=== PATIENT | male | born 1975 | race Hispanic/Latino ===

== ENCOUNTER → 2016-11-15 | Outpatient (CLI) | payer SELFPAY | LOC: YCFC.O 17:12 | PROVIDERS: ATTEND Nurse Practitioner Family | DX: E11.65 Type 2 diabetes mellitus with hyperglycemia (principal); E78.2 Mixed hyperlipidemia; E03.9 Hypothyroidism, unspecified; I10 Essential (primary) hypertension ==

== ENCOUNTER → 2016-12-02 | Outpatient (CLI) | payer SELFPAY ==
--- NOTE | 2016-12-02 09:38 | RAD ---
EXAM DESCRIPTION: Left knee series. CLINICAL HISTORY: Left knee pain. COMPARISON: None. TECHNIQUE: Three views of the left knee are submitted for interpretation. FINDINGS: There is considerable osteophyte formation and joint space loss of all 3 compartments compatible with advanced degenerative change. There is no fracture, dislocation, obvious joint effusion or suspicious radiopaque foreign body. Soft tissues are unremarkable. IMPRESSION: Tricompartment degenerative change. No evidence of fracture. Electronically signed by: Norm Guidry MD 12/02/2016 09:37
--- NOTE | 2016-12-02 09:39 | RAD ---
EXAM DESCRIPTION: Pelvis series. CLINICAL HISTORY: Pelvic pain. COMPARISON: None. TECHNIQUE: One view was submitted for evaluation. FINDINGS: No fracture, dislocation, or radiopaque foreign body is seen. Pelvic ring appears intact. Soft tissues are unremarkable. IMPRESSION: No significant abnormality. Electronically signed by: Norm Guidry MD 12/02/2016 09:37
== END ==
LOC: RAD 07:40
PROVIDERS: ATTEND Orthopaedic Surgery
DX: M25.562 Pain in left knee (principal); M25.552 Pain in left hip; M12.862 Other specific arthropathies, not elsewhere classified, left knee

== ENCOUNTER → 2017-01-11 | Outpatient (CLI) | payer SELFPAY | END | disposition home or self-care (01) | LOC: YCFC.O 07:55 | PROVIDERS: ATTEND Nurse Practitioner Family | DX: E11.9 Type 2 diabetes mellitus without complications (principal) ==

== ENCOUNTER → 2017-05-16 | Outpatient (CLI) | payer BC | END | disposition home or self-care (01) | LOC: YCFC.O 16:39 | PROVIDERS: ATTEND Nurse Practitioner Family | DX: E11.9 Type 2 diabetes mellitus without complications (principal) ==

== ENCOUNTER → 2017-05-23 | Outpatient (CLI) | payer BC ==
--- NOTE | 2017-05-26 17:23 | US ---
EXAM DESCRIPTION: Soft Tissue,Head/Neck CLINICAL HISTORY: 42 years Male, Localized swelling, mass and lump, neck COMPARISON: None. FINDINGS: Ultrasound of the right side of the neck was performed. There is a subthreshold lymph node at the area of concern measuring 5 mm short axis diameter. No adenopathy, fluid collection or other mass. IMPRESSION: Negative exam. If symptoms persist or worsen, CT is suggested. Electronically signed by: Nick Nguyen MD 05/26/2017 12:24 PM CDT Workstation: [id number]
--- NOTE | 2017-05-26 17:23 | RAD ---
EXAM DESCRIPTION: Foot,Right 3 Views CLINICAL HISTORY: 42 years Male, PAIN IN RIGHT FOOT COMPARISON: None. FINDINGS: 3 views of the right foot show no acute fracture or malalignment. The joint spaces are well-maintained. There is a small plantar calcaneal spur. Calcification in the distal Achilles tendon is likely related to chronic or remote Achilles tendinitis. There is a faint peripherally calcified structure posterior to the tibiotalar joint which probably represents an accessory ossicle. Is probable soft tissue swelling laterally. IMPRESSION: Lateral soft tissue swelling without underlying fracture or malalignment. Calcaneal spurring and evidence of remote or chronic Achilles tendinitis. Electronically signed by: Nick Nguyen MD 05/26/2017 12:22 PM CDT Workstation: [facility]
== END ==
LOC: RAD 16:24
PROVIDERS: ATTEND Nurse Practitioner Family
DX: R22.1 Localized swelling, mass and lump, neck (principal); M79.671 Pain in right foot; E11.65 Type 2 diabetes mellitus with hyperglycemia

== ENCOUNTER 2017-12-29 17:23 | Emergency (ER) | payer BC ==
[2017-12-29 17:57] VITALS: TEMP 98.2
--- NOTE | 2017-12-29 18:10 | ED.PDOC ---
History of Present Illness - General Chief Complaint: ENT Problem Stated Complaint: lt ear pain, cough, Time Seen by Provider: 12/29/17 18:01 Source: patient Exam Limitations: no limitations - History of Present Illness Timing/Duration: gradual, other - one month EENT Location: eye (L), ear (L), facial Prearrival Treatment: over the counter meds Improving Factors: nothing Worsening Factors: nothing Associated Symptoms: change in hearing, cough, facial pain/swelling, nasal congestion/drainage, sinus infection Allergies/Adverse Reactions: Allergies NO KNOWN ALLERGY Allergy (Verified 12/29/17 17:59) Home Medications: Ambulatory Orders Fluticasone Propionate (Nasal) [Flonase] 50 mcg NA BID #1 spr 12/29/17 Levemir Pen 12/29/17 Lisinopril 12/29/17 Meloxicam 12/29/17 Metformin HCl 12/29/17 Tramadol HCl 50 mg PO Q4HR PRN #20 tab 12/29/17 glipiZIDE 12/29/17 Review of Systems - Review of Systems Constitutional: Denies: chills, fever, weakness EENTM: States: blurred vision, tearing, ear pain, nose congestion. Denies: throat pain Respiratory: States: cough. Denies: short of breath Cardiology: Denies: chest pain, edema Gastrointestinal/Abdominal: States: nausea. Denies: abdominal pain Genitourinary: States: frequency. Denies: dysuria, hematuria Musculoskeletal: Denies: joint pain, muscle pain Skin: Denies: rash Neurological: States: headache. Denies: weakness Endocrine: States: increased thirst, increased urine Hematologic/Lymphatic: Denies: swollen glands Past Medical History (General) - Patient Medical History Hx Seizures: No Hx Asthma: No Hx of COPD: No Hx Cardiac Disorders: No Hx Hypertension: Yes Hx Thyroid Disease: Yes Hx Diabetes: Yes Hx Gastroesophageal Reflux: Yes Hx Cancer: No - Vaccination History Hx Tetanus, Diphtheria Vaccination: No Hx Influenza Vaccination: Yes Hx Pneumococcal Vaccination: No Immunizations Up to Date: Yes - Social History Hx Alcohol Use: Yes Family Medical History - Family History Father Hx Family Diabetes: Yes Hx Family;Other: liver problems Physical Exam - Physical Exam General Appearance: Alert, Obvious distress Eye Exam: right normal, left other - trace infraorbital edema Ear Exam: right ear: canal normal, TM normal, left ear: TM red, erythema Nasal Exam: discharge Throat Exam: pharynx normal Neck: non-tender, full range of motion, normal inspection Cardiovascular/Respiratory: regular rate, rhythm, normal breath sounds, no respiratory distress Neurologic: alert, normal mood/affect, oriented x 3 Skin Exam: normal color, warm/dry Departure - Departure Clinical Impression: Ear ache URI (upper respiratory infection) Qualifiers: URI type: unspecified viral URI Qualified Code(s): J06.9 - Acute upper respiratory infection, unspecified; B97.89 - Other viral agents as the cause of diseases classified elsewhere Disposition: Discharge to Home or Self Care Departure Forms: ED Discharge - Pt. Copy, Patient Portal Self Enrollment Instructions: DI for Ear Pain-Adult Referrals: Alison New NP [Primary Care Provider] - 1-2 Weeks Prescriptions: Tramadol HCl 50 mg PO Q4HR PRN #20 tab PRN Reason: Moderate Pain Fluticasone Propionate (Nasal) [Flonase] 50 mcg NA BID #1 spr Home Medications: Ambulatory Orders Fluticasone Propionate (Nasal) [Flonase] 50 mcg NA BID #1 spr 12/29/17 Levemir Pen 12/29/17 Lisinopril 12/29/17 Meloxicam 12/29/17 Metformin HCl 12/29/17 Tramadol HCl 50 mg PO Q4HR PRN #20 tab 12/29/17 glipiZIDE 12/29/17
--- NOTE | 2017-12-29 18:36 | RAD ---
PROCEDURE: XR PARANASAL SINUSES 3 OR MORE VIEWS CLINICAL HISTORY: 42 years Male L facial edema COMPARISON: None. TECHNIQUE: FINDINGS: No fluid is visualized in the paranasal sinuses. No definite acute fracture. IMPRESSION: No acute fracture is identified. CT could be obtained to better evaluate. Electronically signed by: Cody Jean MD 12/29/2017 6:35 PM [employer]
[2017-12-29 18:50] VITALS: BP 156/105; O2SAT 96
== END 2017-12-29 19:20 | disposition home or self-care (01) ==
LOC: ER 17:23
DX: H92.02 Otalgia, left ear (principal); J06.9 Acute upper respiratory infection, unspecified; B97.89 Other viral agents as the cause of diseases classified elsewhere; I10 Essential (primary) hypertension; E11.9 Type 2 diabetes mellitus without complications; E07.9 Disorder of thyroid, unspecified

== ENCOUNTER 2018-02-03 17:05 | Emergency (ER) | payer BC ==
[2018-02-03] MEDS ORDERED: TETRACAINE HCL 0.5% OPHTH SOL 1 DROP OPHTH ONE (17:06)
[2018-02-03] MEDS ORDERED: GENTAMICIN 0.3% OPHTH SOL 1 DROP OPHTH ONE (17:06)
[2018-02-03] MEDS ORDERED: OPHTHALMIC SALT SOLUTION 120 ML BTTL ONE (17:17)
[2018-02-03 17:23] VITALS: BP 126/91; TEMP 97.4; O2SAT 96
--- NOTE | 2018-02-03 17:39 | ED.PDOC ---
History of Present Illness - General Chief Complaint: Eye Problems Stated Complaint: right eye pain Time Seen by Provider: 02/03/18 17:12 Source: patient Exam Limitations: no limitations - History of Present Illness Initial Comments: The patient is a 42-year-old male presenting to the emergency room secondary to a corneal abrasion right over the pupil of his right eye. The abrasion is C-shaped one that had at one point formed a flap that has smoothed out. The patient did this by leaning over into a dark to get something, when an object in the closet poked him in the eye. He has had corneal abrasions before. He does not wear contacts. He does have some blurry vision on that side as one would expect. Extraocular movements are intact. Timing/Duration: 24 hours Severity: moderate Improving Factors: nothing Worsening Factors: nothing Associated Symptoms: denies symptoms Allergies/Adverse Reactions: Allergies NO KNOWN ALLERGY Allergy (Verified 12/29/17 17:59) Home Medications: Ambulatory Orders Eqlkisdzumwqz-Nihw-Tdbezkpfau [Fioricet] 1 ea PO Q8H PRN #21 tab 02/03/18 Erythromycin Ophth Oint 0.5 inch OPHTH Q4H #2 tube 02/03/18 Glipizide [Glipizide] 10 mg PO BID 02/03/18 Insulin Detemir [Levemir] 5 - 10 units SUBCU BID 02/03/18 Lisinopril [Lisinopril] 20 mg PO BID 02/03/18 Meloxicam [Meloxicam] 15 mg PO DAILY 02/03/18 Metformin HCl [Metformin HCl] 1,000 mg PO BID 02/03/18 Review of Systems - Review of Systems Constitutional: States: no symptoms reported EENTM: States: eye pain, blurred vision, tearing Respiratory: States: no symptoms reported Cardiology: States: no symptoms reported Gastrointestinal/Abdominal: States: no symptoms reported Genitourinary: States: no symptoms reported Musculoskeletal: States: no symptoms reported Skin: States: no symptoms reported Neurological: States: no symptoms reported All other Systems: No Change from Baseline Past Medical History (General) - Patient Medical History Hx Seizures: No Hx Stroke: No Hx Asthma: No Hx of COPD: No Hx Cardiac Disorders: No Hx Congestive Heart Failure: No Hx Hypertension: Yes Hx Thyroid Disease: Yes Hx Diabetes: Yes Hx Gastroesophageal Reflux: Yes Hx Cancer: No - Vaccination History Hx Tetanus, Diphtheria Vaccination: - unknown Hx Influenza Vaccination: Yes Hx Pneumococcal Vaccination: No - Social History Hx Tobacco Use: Yes Hx Alcohol Use: Yes Family Medical History - Family History Father Hx Family Diabetes: Yes Hx Family;Other: liver problems Physical Exam - Physical Exam General Appearance: Alert, Anxious, No apparent distress Eye Exam: right other - the right eye shows conjunctival injection. Fluorescein exam shows the corneal abrasion. The flap appears to have flattened out. 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 There is a significant sized abrasion. The patient will be written for erythromycin ointment to be used for the next 10 days to 2 weeks. 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 He also needs to wear goggles to keep wind and the dust away from the eye and he may need to patch the eye during the day to prevent headaches. He needs to follow up with his primary care doctor early next week for reevaluation. he can continue the meloxicam for pain relief. He will be written for Fioricet for as needed use. There is the possibility that he may yet need an ophthalmological evaluation if it is not healing well. ER warnings were given for any worsening. Departure - Departure Clinical Impression: Corneal abrasion, right Qualifiers: Encounter type: initial encounter Qualified Code(s): S05.01XA - Injury of conjunctiva and corneal abrasion without foreign body, right eye, initial encounter Disposition: Discharge to Home or Self Care Condition: Fair Departure Forms: ED Discharge - Pt. Copy, Patient Portal Self Enrollment Instructions: DI for Corneal Abrasion Diet: regular diet Activity: increase activity as tolerated Referrals: Alison New, SHIRT LINE OPERATOR [Primary Care Provider] - 1-5 Days Prescriptions: Yiushmsasrcbt-Vill-Nwqfzuanhk [Fioricet] 1 ea PO Q8H PRN #21 tab PRN Reason: Pain Erythromycin Ophth Oint 0.5 inch OPHTH Q4H #2 tube Home Medications: Ambulatory Orders Mpuhihgxzaaes-Xzlo-Jnyaquuvqk [Fioricet] 1 ea PO Q8H PRN #21 tab 02/03/18 Erythromycin Ophth Oint 0.5 inch OPHTH Q4H #2 tube 02/03/18 Glipizide [Glipizide] 10 mg PO BID 02/03/18 Insulin Detemir [Levemir] 5 - 10 units SUBCU BID 02/03/18 Lisinopril [Lisinopril] 20 mg PO BID 02/03/18 Meloxicam [Meloxicam] 15 mg PO DAILY 02/03/18 Metformin HCl [Metformin HCl] 1,000 mg PO BID 02/03/18 Additional Instructions: the patient's a 42-year-old male presenting with a corneal abrasion over the pupil of his right eye. There is a significant sized abrasion. The patient will be written for erythromycin ointment to be used for the next 10 days to 2 weeks. 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 He also needs to wear goggles to keep wind and the dust away from the eye and he may need to patch the eye during the day to prevent headaches. He needs to follow up with his primary care doctor early next week for reevaluation. he can continue the meloxicam for pain relief. He will be written for Fioricet for as needed use. There is the possibility that he may yet need an ophthalmological evaluation if it is not healing well. ER warnings were given for any worsening.
== END 2018-02-03 18:01 | disposition home or self-care (01) ==
LOC: ER 17:05
DX: S05.01XA Injury of conjunctiva and corneal abrasion without foreign body, right eye, initial encounter (principal); I10 Essential (primary) hypertension; E11.9 Type 2 diabetes mellitus without complications; E07.9 Disorder of thyroid, unspecified; K21.9 Gastro-esophageal reflux disease without esophagitis; Z79.4 Long term (current) use of insulin; Z87.891 Personal history of nicotine dependence; W22.8XXA Striking against or struck by other objects, initial encounter; Y92.9 Unspecified place or not applicable

== ENCOUNTER 2018-08-09 10:29 | Emergency (ER) | payer BC ==
[2018-08-09 11:00] VITALS: O2SAT 95
[2018-08-09] MEDS ORDERED: cefTRIAXone SODIUM 1 GM VIAL IM ONE (11:40)
[2018-08-09] MEDS ORDERED: LIDOCAINE 1% 2 ML VIAL INJ ONE (11:48)
--- NOTE | 2018-08-09 12:04 | ED.PDOC ---
History of Present Illness - General Chief Complaint: General Stated Complaint: Fever, sore throat, generalized aching Time Seen by Provider: 08/09/18 11:59 Source: patient Exam Limitations: no limitations - History of Present Illness Initial Comments: C/O FEVER AND ST. Severity: moderate Improving Factors: nothing Worsening Factors: nothing Associated Symptoms: denies symptoms Allergies/Adverse Reactions: Allergies NO KNOWN ALLERGY Allergy (Verified 12/29/17 17:59) Home Medications: Ambulatory Orders Bbzukogdvzool-Zzbn-Ayacumxrqv [Fioricet] 1 ea PO Q8H PRN #21 tab 02/03/18 Erythromycin Ophth Oint 0.5 inch OPHTH Q4H #2 tube 02/03/18 Glipizide [Glipizide] 10 mg PO BID 02/03/18 Insulin Detemir [Levemir] 5 - 10 units SUBCU BID 02/03/18 Lisinopril [Lisinopril] 20 mg PO BID 02/03/18 Meloxicam [Meloxicam] 15 mg PO DAILY 02/03/18 Metformin HCl [Metformin HCl] 1,000 mg PO BID 02/03/18 Cefuroxime Axetil [Ceftin] 500 mg PO Q12H #20 tablet 08/09/18 Review of Systems - Review of Systems Constitutional: States: fever - TMAX 101 EENTM: States: no symptoms reported Respiratory: Denies: cough, short of breath, wheezing Cardiology: Denies: chest pain, palpitations Gastrointestinal/Abdominal: Denies: nausea, vomiting Genitourinary: States: no symptoms reported Musculoskeletal: States: other - PT C/O 3 WEEK HX OF PAIN R SECOND TOE. STARTED DRAINING 2 DAYS AGO. Skin: States: no symptoms reported Neurological: States: no symptoms reported Endocrine: States: no symptoms reported Hematologic/Lymphatic: States: no symptoms reported Past Medical History (General) - Patient Medical History Hx Seizures: No Hx Stroke: No Hx Asthma: No Hx of COPD: No Hx Cardiac Disorders: No Hx Congestive Heart Failure: No Hx Hypertension: Yes Hx Thyroid Disease: Yes Hx Diabetes: Yes Hx Gastroesophageal Reflux: Yes Hx Cancer: No - Vaccination History Hx Tetanus, Diphtheria Vaccination: - unknown Hx Influenza Vaccination: Yes - 2018 Hx Pneumococcal Vaccination: No - Social History Hx Tobacco Use: Yes Hx Alcohol Use: Yes Family Medical History - Family History Father Living Status: Still Living Hx Family Diabetes: Yes Hx Family;Other: liver problems Physical Exam - Physical Exam General Appearance: Obese Eye Exam: bilateral normal Ears, Nose, Throat: pharyngeal erythema, other - NO EXUDATE, TM'S NL Neck: supple, other - TENDER ANT ADENOPATHY Respiratory: lungs clear, normal breath sounds Cardiovascular/Chest: regular rate, rhythm, no murmur Gastrointestinal/Abdominal: non tender, soft, no organomegaly Back Exam: normal inspection, no CVA tenderness Extremity: normal range of motion, other - R SECOND TOE WITH SWELLING DISTAL ASPECT, SMALL AMOUNT CLEAR DRAINAGE AT THE NAIL BED, NO LYMPHANGITIS, NVI, Neurologic: alert, normal mood/affect Skin Exam: normal color Departure - Departure Clinical Impression: Strep pharyngitis Cellulitis Qualifiers: Site of cellulitis: other site Qualified Code(s): L03.818 - Cellulitis of other sites ICD-10 Supporting Text: CELLULITIS TOE Time of Disposition: 12:13 Disposition: Discharge to Home or Self Care Condition: Good Departure Forms: ED Discharge - Pt. Copy, ED Discharge - Work Release, Patient Portal Self Enrollment Instructions: Sore Throat, Adult (DC), Cellulitis and Erysipelas (Skin Infections) Referrals: Alison New, CREATIVE SERVICES MANAGER [Primary Care Provider] - 1-2 Weeks Prescriptions: Cefuroxime Axetil [Ceftin] 500 mg PO Q12H #20 tablet Home Medications: Ambulatory Orders Upuadarzfgzsd-Utly-Lppxaflfdx [Fioricet] 1 ea PO Q8H PRN #21 tab 02/03/18 Erythromycin Ophth Oint 0.5 inch OPHTH Q4H #2 tube 02/03/18 Glipizide [Glipizide] 10 mg PO BID 02/03/18 Insulin Detemir [Levemir] 5 - 10 units SUBCU BID 02/03/18 Lisinopril [Lisinopril] 20 mg PO BID 02/03/18 Meloxicam [Meloxicam] 15 mg PO DAILY 02/03/18 Metformin HCl [Metformin HCl] 1,000 mg PO BID 02/03/18 Cefuroxime Axetil [Ceftin] 500 mg PO Q12H #20 tablet 08/09/18
[2018-08-09 12:40] VITALS: BP 133/91; TEMP 100.9
== END 2018-08-09 12:30 | disposition home or self-care (01) ==
LOC: ER 10:29
DX: J02.0 Streptococcal pharyngitis (principal); L03.031 Cellulitis of right toe; E11.9 Type 2 diabetes mellitus without complications; I10 Essential (primary) hypertension; K21.9 Gastro-esophageal reflux disease without esophagitis; E07.9 Disorder of thyroid, unspecified; Z79.4 Long term (current) use of insulin; Z79.899 Other long term (current) drug therapy; Z87.891 Personal history of nicotine dependence
CPT/HCPCS: 36416; 82948; 87880; J0696

== ENCOUNTER 2018-11-30 10:28 | Emergency (ER) | payer BC, OTHER ==
[2018-11-30] MEDS ORDERED: POVIDONE IODINE 10 % 15 ML UD TOP ONE (10:35)
--- NOTE | 2018-11-30 11:33 | ED.PDOC ---
History of Present Illness - General Chief Complaint: Trauma Stated Complaint: left index fingr injury at work Time Seen by Provider: 11/30/18 11:30 Source: patient Exam Limitations: no limitations - History of Present Illness Initial Comments: Patient presents after a 2 pound hammer got deflected from a piece of machinery and landed on his right index finger, crushing it against a metal bar. He has sustained a laceration to the distal anterior 2nd digit. There is pain along the entire finger that is throbbing and limited movement. No other injuries nor complaints. Timing/Duration: 1-3 hours Severity: moderate Improving Factors: rest Worsening Factors: movement Associated Symptoms: denies symptoms Allergies/Adverse Reactions: Allergies NO KNOWN ALLERGY Allergy (Verified 11/30/18 10:41) Home Medications: Ambulatory Orders Vfsnrlirgixpx-Bqxx-Fyiazawsvj [Fioricet] 1 ea PO Q8H PRN #21 tab 02/03/18 Erythromycin Ophth Oint 0.5 inch OPHTH Q4H #2 tube 02/03/18 Glipizide 10 mg PO BID 02/03/18 Insulin Detemir [Levemir] 5 - 10 units SUBCU BID 02/03/18 Lisinopril 20 mg PO BID 02/03/18 Meloxicam 15 mg PO DAILY 02/03/18 Metformin HCl 1,000 mg PO BID 02/03/18 Cefuroxime Axetil [Ceftin] 500 mg PO Q12H #20 tablet 08/09/18 Review of Systems - Review of Systems Constitutional: States: no symptoms reported EENTM: States: no symptoms reported Respiratory: States: no symptoms reported Cardiology: States: no symptoms reported Gastrointestinal/Abdominal: States: no symptoms reported Genitourinary: States: no symptoms reported Musculoskeletal: States: see HPI Skin: States: see HPI Neurological: States: no symptoms reported Endocrine: States: no symptoms reported Hematologic/Lymphatic: States: no symptoms reported Past Medical History (General) - Patient Medical History Hx Seizures: No Hx Stroke: No Hx Asthma: No Hx of COPD: No Hx Cardiac Disorders: No Hx Congestive Heart Failure: No Hx Hypertension: Yes Hx Thyroid Disease: Yes Hx Diabetes: Yes Hx Gastroesophageal Reflux: Yes Hx Cancer: No - Vaccination History Hx Tetanus, Diphtheria Vaccination: No - unknown Hx Influenza Vaccination: Yes - 2018 Hx Pneumococcal Vaccination: No - Social History Hx Tobacco Use: Yes Hx Alcohol Use: Yes Hx Substance Use: No Hx Substance Use Treatment: No Hx Depression: No - Female History Patient is a Female of Child Bearing Age (10 -59 yrs old): No Family Medical History - Family History Father Living Status: Still Living Hx Family Diabetes: Yes Hx Family;Other: liver problems Physical Exam - Physical Exam General Appearance: Alert Respiratory: lungs clear, normal breath sounds Cardiovascular/Chest: normal peripheral pulses, regular rate, rhythm Peripheral Pulses: radial,right: 2+, radial,left: 2+ Back Exam: other - 1.5 cm transverse laceration on the anterior surface of the distal right 2nd digit. Hemostatic. Patient can flex the finger about 30 degrees before the pain makes him stop. There is 5/5 strength to flexion/extension/adduction/abduction of the right 2nd digit and capillary refill is less than two seconds at the nailbed and distal phalange of the right second digit. Neurologic: no motor/sensory deficits, alert, normal mood/affect, oriented x 3 Progress - Progress Progress: 11/30/18 12:14 Area was prepped and draped in a sterile fashion. 2 cc of lidocaine without epinephrine was used to gain excellent local anesthesia. Three interrupted sutures using 4-0 Proline were used to gain excellent wound edge approximation. Area was clean, dry, and hemostatic upon completion. Patient tolerated the procedure well. Tetanus booster given. Departure - Departure Clinical Impression: Laceration Disposition: Discharge to Home or Self Care Condition: Good Departure Forms: ED Discharge - Pt. Copy, Patient Portal Self Enrollment Instructions: DI for Trauma Diet: resume usual diet Activity: other - Be careful using the right index finger so as not to pop out the sutures. Referrals: Alison New NP [Primary Care Provider] - 1-2 Weeks Home Medications: Ambulatory Orders Dkpgyzqoatbqt-Jibp-Mkillexzxp [Fioricet] 1 ea PO Q8H PRN #21 tab 02/03/18 Erythromycin Ophth Oint 0.5 inch OPHTH Q4H #2 tube 02/03/18 Glipizide 10 mg PO BID 02/03/18 Insulin Detemir [Levemir] 5 - 10 units SUBCU BID 02/03/18 Lisinopril 20 mg PO BID 02/03/18 Meloxicam 15 mg PO DAILY 02/03/18 Metformin HCl 1,000 mg PO BID 02/03/18 Cefuroxime Axetil [Ceftin] 500 mg PO Q12H #20 tablet 08/09/18 Additional Instructions: Return to the E.R. or your regular doctor in 7 days for suture removal. Return to the E.R. sooner for increasing swelling, pain, or pus. You can try using ice, ibuprofen, or tylenol for the pain.
[2018-11-30 11:48] VITALS: O2SAT 94
--- NOTE | 2018-11-30 11:51 | RAD ---
EXAM DESCRIPTION: Fingers,Left CLINICAL HISTORY: 43 years Male, crush injury to right 2nd digit distally COMPARISON: None. FINDINGS: Three views of the right second (index) finger show no acute fracture or malalignment. Distal soft tissue swelling is noted without radiopaque foreign body or soft tissue gas. IMPRESSION: Soft tissue swelling, otherwise unremarkable exam. Electronically signed by: Nick Nguyen MD 11/30/2018 11:50 AM [facility]
[2018-11-30] MEDS ORDERED: LIDOCAINE 1% 10 ML VIAL INJ ONE (11:56)
[2018-11-30] MEDS ORDERED: TETANUS,DIPHTHERIA,PERTUSSIS 1 EA SYG IM ONE (12:16)
[2018-11-30 12:47] VITALS: BP 129/86; TEMP 97.2
== END 2018-11-30 12:35 | disposition home or self-care (01) ==
LOC: ER 10:28
DX: S61.210A Laceration without foreign body of right index finger without damage to nail, initial encounter (principal); S67.190A Crushing injury of right index finger, initial encounter; K21.9 Gastro-esophageal reflux disease without esophagitis; I10 Essential (primary) hypertension; E07.9 Disorder of thyroid, unspecified; E11.9 Type 2 diabetes mellitus without complications; W23.1XXA Caught, crushed, jammed, or pinched between stationary objects, initial encounter; Y99.0 Civilian activity done for income or pay; Y92.69 Other specified industrial and construction area as the place of occurrence of the external cause; Z87.891 Personal history of nicotine dependence; Z79.899 Other long term (current) drug therapy; Z79.4 Long term (current) use of insulin

== ENCOUNTER → 2019-01-22 | Outpatient (CLI) | payer OTHER | LOC: YCFC.O 07:56 | PROVIDERS: ATTEND Nurse Practitioner Family | DX: Z00.00 Encounter for general adult medical examination without abnormal findings (principal) ==

== ENCOUNTER 2019-08-03 14:52 | Emergency (ER) | payer OTHER ==
--- NOTE | 2019-08-03 16:09 | ED.PDOC ---
History of Present Illness - General Chief Complaint: Upper Extremity Injury Time Seen by Provider: 08/03/19 16:01 - History of Present Illness Initial Comments: 44 yo M PMH HTN DM presents to ED at bedside one hour after accidental cut of L hand ring finger admits in machine. Pt. is right handed so this is non dominant hand. Denies head injury LOC tetanus beginning of this year denies fever chills nausea vomiting diarrhea chest pain sob diaphoresis. No change in diet rest bowel or bladder, admits smoking and occasional drinking no other c/o today. Allergies/Adverse Reactions: Allergies NO KNOWN ALLERGY Allergy (Verified 11/30/18 10:41) Home Medications: Ambulatory Orders Glipizide 10 mg PO BID 02/03/18 Metformin HCl 1,000 mg PO BID 02/03/18 Acetaminophen [Tylenol] 650 mg PO Q6H PRN #30 tab 08/03/19 Amoxicillin & Pot Clavulanate [Augmentin Tab] 875 mg PO BID 10 Days #20 tab 08/03/19 Cholesterol 1 mis XX DAILY 08/03/19 Dapagliflozin Propanediol [Farxiga] 5 mg PO DAILY 08/03/19 Doxycycline (Monohydrate) [Doxycycline Monohydrate] 100 mg PO BID 10 Days #20 tab 08/03/19 Ibuprofen 600 mg PO Q6H PRN #20 tab 08/03/19 Insulin Glargine 100U/ml [Lantus] 20 unit SUBCU BID 08/03/19 Lisinopril & Hydrochlorothiazi [Lisinopril/Hctz 20-25 mg] 1 tab PO BID 08/03/19 Review of Systems - Review of Systems Constitutional: States: no symptoms reported EENTM: States: no symptoms reported Respiratory: States: no symptoms reported Cardiology: States: no symptoms reported Gastrointestinal/Abdominal: States: no symptoms reported Genitourinary: States: no symptoms reported Musculoskeletal: States: no symptoms reported Skin: States: see HPI Neurological: States: no symptoms reported Endocrine: States: no symptoms reported Hematologic/Lymphatic: States: no symptoms reported All other Systems: Reviewed and Negative Past Medical History (General) - Patient Medical History Hx Seizures: No Hx Stroke: No Hx Asthma: No Hx of COPD: No Hx Cardiac Disorders: No Hx Congestive Heart Failure: No Hx Hypertension: Yes Hx Thyroid Disease: Yes Hx Diabetes: Yes Hx Gastroesophageal Reflux: Yes Hx Cancer: No - Vaccination History Hx Tetanus, Diphtheria Vaccination: No - unknown Hx Influenza Vaccination: Yes - 2018 Hx Pneumococcal Vaccination: No - Social History Hx Tobacco Use: Yes Hx Alcohol Use: Yes Hx Substance Use: No Hx Substance Use Treatment: No Hx Depression: No Family Medical History - Family History Father Living Status: Still Living Hx Family Diabetes: Yes Hx Family;Other: liver problems Physical Exam - Physical Exam General Appearance: No apparent distress Eyes, Ears, Nose, Throat Exam: normal ENT inspection Neck: non-tender, full range of motion Cardiovascular/Respiratory: regular rate, rhythm Abdominal Exam: non-tender Back Exam: normal inspection Shoulder Exam: normal inspection Elbow/Forearm Exam: normal inspection Wrist Exam: normal inspection Hand Exam: laceration - approx 1 cm linar laceration to palmar surface ring finger Neuro/Tendon: normal sensation, normal motor functions, normal tendon functions Mental Status: oriented x 3 Skin Exam: other - laceration as described Progress - Progress Progress: 08/03/19 16:11 A/P-Finger Laceration 1.tylenol tetanus xr l hand repair laceration after lidocaine d/c follow up pcp wound check 48 hours and suture removal 7-10 days tylenol ibuprofen augmentin doxycycline 08/03/19 18:25 Laboratory Tests 08/03/19 15:45 Urine Color Yellow Urine Appearance Clear Urine pH 5.0 Ur Specific [place] 1.015 Urine Protein Negative Urine Glucose (UA) 500 H Urine Ketones Negative Urine Blood Negative Urine Nitrite Negative Urine Bilirubin Negative Urine Urobilinogen 0.2 Ur Leukocyte Esterase Negative Urine RBC 0 Urine WBC 0 Ur Epithelial Cells 0 Urine Bacteria 0 08/03/19 18:39 EXAM DESCRIPTION: Hand,Left 3 Views CLINICAL HISTORY: CAUGHT IN MACHINERY COMPARISON: None Available. TECHNIQUE: AP, LATERAL, AND OBLIQUE FINDINGS: The visualized bones appear well mineralized. No acute fracture or dislocation. The soft tissues appear grossly unremarkable. IMPRESSION: No acute traumatic abnormality of the left hand. Electronically signed by: Cindy Harris MD 08/03/2019 4:14 PM CDT Procedures - Laceration/Wound Repair Finger Wound's Depth, Shape: superficial, linear Wound Explored: no foreign body removed Betadine Prep?: No - Hibiclens Anesthesia: 1% Lidocaine Volume Anesthetic (cc's): 10 Wound Debrided: minimal Wound Repaired With: sutures Suture Size/Type: 4:0, prolene Number of Sutures: 11 Layer Closure?: No Departure - Departure Clinical Impression: Finger laceration Qualifiers: Encounter type: initial encounter Finger: ring finger Damage to nail status: without damage Foreign body presence: without foreign body Laterality: left Qualified Code(s): S61.215A - Laceration without foreign body of left ring finger without damage to nail, initial encounter Time of Disposition: 22:37 Disposition: Discharge to Home or Self Care Condition: Good Departure Forms: ED Discharge - Pt. Copy, Patient Portal Self Enrollment Instructions: DI for Hand Injury Referrals: Alison New NP [Primary Care Provider] - 1-2 Weeks Prescriptions: Acetaminophen [Tylenol] 650 mg PO Q6H PRN #30 tab PRN Reason: Pain Amoxicillin & Pot Clavulanate [Augmentin Tab] 875 mg PO BID 10 Days #20 tab Doxycycline (Monohydrate) [Doxycycline Monohydrate] 100 mg PO BID 10 Days #20 tab Ibuprofen 600 mg PO Q6H PRN #20 tab PRN Reason: Pain Home Medications: Ambulatory Orders Glipizide 10 mg PO BID 02/03/18 Metformin HCl 1,000 mg PO BID 02/03/18 Acetaminophen [Tylenol] 650 mg PO Q6H PRN #30 tab 08/03/19 Amoxicillin & Pot Clavulanate [Augmentin Tab] 875 mg PO BID 10 Days #20 tab 08/03/19 Cholesterol 1 mis XX DAILY 08/03/19 Dapagliflozin Propanediol [Farxiga] 5 mg PO DAILY 08/03/19 Doxycycline (Monohydrate) [Doxycycline Monohydrate] 100 mg PO BID 10 Days #20 tab 08/03/19 Ibuprofen 600 mg PO Q6H PRN #20 tab 08/03/19 Insulin Glargine 100U/ml [Lantus] 20 unit SUBCU BID 08/03/19 Lisinopril & Hydrochlorothiazi [Lisinopril/Hctz 20-25 mg] 1 tab PO BID 08/03/19
--- NOTE | 2019-08-03 16:15 | RAD ---
EXAM DESCRIPTION: Hand,Left 3 Views CLINICAL HISTORY: CAUGHT IN MACHINERY COMPARISON: None Available. TECHNIQUE: AP, LATERAL, AND OBLIQUE FINDINGS: The visualized bones appear well mineralized. No acute fracture or dislocation. The soft tissues appear grossly unremarkable. IMPRESSION: No acute traumatic abnormality of the left hand. Electronically signed by: Cindy Harris MD 08/03/2019 4:14 PM CDT
[2019-08-03 16:20] VITALS: TEMP 98
[2019-08-03] MEDS: ACETAMINOPHEN 500 MG TAB PO ONE (16:42)
[2019-08-03 17:21] VITALS: O2SAT 96
[2019-08-03] MEDS: ONDANSETRON INJ 4 MG/2 ML VIAL IV ONE (17:34)
[2019-08-03] MEDS: TETANUS,DIPHTHERIA,PERTUSSIS 1 EA SYG IM ONE (17:34)
[2019-08-03] MEDS: MORPHINE SULFATE INJ 10 MG/ML VIAL IV ONE (17:35)
[2019-08-03] MEDS ORDERED: LIDOCAINE 1% 10 ML VIAL INJ ONE (21:39)
[2019-08-03] MEDS ORDERED: CHLORHEXIDINE GLUCONATE 4 % 15 ML UD TOP ONE ×2 (21:39→21:47)
[2019-08-03] MEDS ORDERED: BACITRACIN 0.9 GM UD PCKT ONE (21:40)
[2019-08-03] MEDS: LIDOCAINE 1% 10 ML VIAL INJ ONE (21:52)
[2019-08-03] MEDS: BACITRACIN 0.9 GM UD PCKT TOP ONE (21:52)
[2019-08-03 22:32] VITALS: BP 109/78
== END 2019-08-03 22:58 | disposition home or self-care (01) ==
LOC: ER 14:52
DX: S61.215A Laceration without foreign body of left ring finger without damage to nail, initial encounter (principal); F17.200 Nicotine dependence, unspecified, uncomplicated; I10 Essential (primary) hypertension; E07.9 Disorder of thyroid, unspecified; E11.9 Type 2 diabetes mellitus without complications; K21.9 Gastro-esophageal reflux disease without esophagitis; Z79.4 Long term (current) use of insulin; Z79.899 Other long term (current) drug therapy; W31.9XXA Contact with unspecified machinery, initial encounter; Y92.9 Unspecified place or not applicable
CPT/HCPCS: 73130; 81001; J2270; J2405; J3490

== ENCOUNTER → 2019-12-28 | Outpatient (CLI) | payer OTHER ==
--- NOTE | 2019-12-29 10:05 | MRI ---
EXAM DESCRIPTION: MRI left hand CLINICAL HISTORY: Acquired trigger finger. Fourth digit crush injury COMPARISON: None. TECHNIQUE: Multiplanar, multisequence MR images of the left hand FINDINGS: Sagittal image 9 demonstrates mild intermediate T1/T2 signal along the flexor tendon anterior to the PIP/middle phalanx. Flexor tendon is intact. No diagnostic intrinsic signal within the flexor tendon otherwise. The other flexor tendons included in the [id number] are normal Normal extensor tendons. Normal marrow signal. No arthrosis/osteochondral lesion Intrinsic muscles of the hand included in the [id number] are normal. No abnormality of the partially visualized wrist IMPRESSION: Nonspecific mild intermediate signal along the flexor tendon sheath of fourth finger. This may be a manifestation of scarring/fibrosis along the tendon sheath and may account for trigger finger symptoms No diagnostic intrinsic tendon abnormality Electronically signed by: Vincent Gross MD 12/29/2019 10:04 AM [facility]
== END ==
LOC: MRI 11:00
PROVIDERS: ATTEND Orthopaedic Surgery
DX: M65.342 Trigger finger, left ring finger (principal)

== ENCOUNTER → 2020-01-28 | Outpatient (CLI) | payer BC | LOC: LAB.O 10:37 | PROVIDERS: ATTEND Nurse Practitioner | DX: E11.65 Type 2 diabetes mellitus with hyperglycemia (principal) ==

== ENCOUNTER → 2020-02-08 | Outpatient (CLI) | payer BC, OTHER | LOC: YCFC.O 15:00 | PROVIDERS: ATTEND Family Medicine | DX: L03.90 Cellulitis, unspecified (principal) ==

== ENCOUNTER → 2020-06-26 | Outpatient (CLI) | payer BC | LOC: YCFC.O 15:50 | PROVIDERS: ATTEND Family Medicine | DX: E11.9 Type 2 diabetes mellitus without complications (principal) ==

== ENCOUNTER → 2020-09-01 | Outpatient (CLI) | payer BC | LOC: YCFC.O 16:13 | PROVIDERS: ATTEND Nurse Practitioner Family | DX: L02.91 Cutaneous abscess, unspecified (principal) ==

== ENCOUNTER → 2020-09-18 | Outpatient (CLI) | payer BC ==
--- NOTE | 2020-09-18 15:31 | RAD ---
EXAM DESCRIPTION: Pelvis CLINICAL HISTORY: BILATERAL pain in left hip COMPARISON: 02 December 2016 TECHNIQUE: AP pelvis FINDINGS: Mild degenerative changes are observed in the lower lumbar spine. Pelvis is intact. Phleboliths are observed in the left side of the pelvis. The proximal femurs are intact. IMPRESSION: Unremarkable pelvis. Electronically signed by: Bogdan Balderrama MD 09/18/2020 3:30 PM [facility]
--- NOTE | 2020-09-18 15:34 | RAD ---
EXAM DESCRIPTION: Knee,Left Complete CLINICAL HISTORY: pain in right and left knee COMPARISON: 02 December 2016 TECHNIQUE: 4 views left FINDINGS: Chondrocalcinosis is observed in the lateral medial joint compartments. Lateral femoral and tibial osteophyte formation is observed. Medial femoral osteophyte formation is noted. Patellofemoral joint arthritis is noted. Small joint effusion is evident. No fracture is detected. IMPRESSION: Tricompartmental joint arthritis is observed. There is been slight progression of disease since the previous exam. Electronically signed by: Bogdan Balderrama MD 09/18/2020 3:32 PM [facility]
--- NOTE | 2020-09-18 15:36 | RAD ---
EXAM DESCRIPTION: Knee,Right Complete CLINICAL HISTORY: pain in left and right knee COMPARISON: 28 November 2010 TECHNIQUE: 4 views FINDINGS: Chondrocalcinosis is observed in the lateral medial joint compartments. Lateral tibial and femoral osteophyte formation is noted. Patellofemoral joint arthritis is seen. An irregular anterior tibial tubercle is observed. No acute fracturing is detected. IMPRESSION: Tricompartmental joint arthritis is observed. Electronically signed by: Bogdan Balderrama MD 09/18/2020 3:34 PM [facility]
== END ==
LOC: RAD 09:24
PROVIDERS: ATTEND Orthopaedic Surgery
DX: M17.0 Bilateral primary osteoarthritis of knee (principal); M25.552 Pain in left hip

== ENCOUNTER → 2020-09-25 | Outpatient (CLI) | payer BC | LOC: LAB.O 08:18 | PROVIDERS: ATTEND Family Medicine | DX: E11.65 Type 2 diabetes mellitus with hyperglycemia (principal); I10 Essential (primary) hypertension; Z13.220 Encounter for screening for lipoid disorders; N52.9 Male erectile dysfunction, unspecified ==